=== PATIENT | female | born 1975 | race Caucasian/White ===

== ENCOUNTER 2022-07-29 17:00 | Outpatient (RCR) | payer OTHER, SELFPAY | END 2022-09-01 10:46 | disposition home or self-care (01) | LOC: HO.PT 17:00 | PROVIDERS: PCP Pediatrics; Visit Provider Urology | DX: R35.0 Frequency of micturition (principal); R32 Unspecified urinary incontinence; R39.14 Feeling of incomplete bladder emptying | CPT/HCPCS: 97110; 97112; 97140; 97162 ==